=== PATIENT | female | born 1985 | race Two or more races ===

== ENCOUNTER 2018-01-08 12:50 | Outpatient (CLI) | payer OTHER | END 2018-01-08 13:04 | disposition home or self-care (01) | LOC: SONOGRAMA 12:50 | DX: N61.1 Abscess of the breast and nipple (principal); N61.0 Mastitis without abscess ==

== ENCOUNTER 2018-01-09 12:52 | Outpatient (CLI) | payer OTHER | END 2018-01-09 12:56 | disposition home or self-care (01) | LOC: SONOGRAMA 12:52 | DX: N61.1 Abscess of the breast and nipple (principal); N61.0 Mastitis without abscess ==

== ENCOUNTER → 2018-01-09 16:19 | Outpatient (CLI) | payer OTHER | END | disposition home or self-care (01) | LOC: LAB 16:19 | DX: N61.1 Abscess of the breast and nipple (principal) ==

== ENCOUNTER 2018-09-24 12:50 | Inpatient (IN) | payer OTHER ==
[~2018-09-24] VITALS: Ht 154.9 cm; Wt 56.7 kg
--- NOTE | 2018-09-24 12:58 | NUR ---
PACIENTE REFIERE DOLOR ABDOMINAL EN EL CUADRANTE SUPERIOR DERECHO. REFIERE TENER GINNA EN VESICULA.
[2018-09-26] MEDS ORDERED: ULTRACET PO (09:40)
[2018-09-26] MEDS ORDERED: PEPCID20 MG PO (09:41)
[2018-09-26] MEDS ORDERED: INTESTINEX680 M1 PO (09:41)
== END 2018-09-26 13:21 | disposition home or self-care (01) | DRG 419 ==
LOC: ER 12:50 → SEC-K 13:42 → SURH 13:42
PROVIDERS: ADMIT Surgery
PROC: 0FT44ZZ Resection of Gallbladder, Percutaneous Endoscopic Approach (ICD-10-PCS; principal; 2018-09-25 11:45)
DX: K80.10 Calculus of gallbladder with chronic cholecystitis without obstruction (principal); R10.11 Right upper quadrant pain; E86.0 Dehydration; E87.8 Other disorders of electrolyte and fluid balance, not elsewhere classified